=== PATIENT | male | born 1955 | race Hispanic/Latino ===

== ENCOUNTER 2017-07-15 17:41 | Observation (INO) | payer OTHER, SELFPAY ==
[2017-07-15 18:36] LABS: #Basophils 0.1 thou/uL (0.0-0.2); #Eosinphils 0.3 thou/uL (0.0-0.7); #Lymphocytes 1.7 thou/uL (1.20-3.40); #Monocytes 0.8 thou/uL (0.11-0.59); #Neutrophils 5.3 thou/uL (1.40-6.50); %Basophils 0.8 % (0.0-1.0); %Eosinophils 3.4 % (0.0-10.0); %Lymphocytes 20.9 % (21.0-51.0); %Monocytes 9.2 % (0.0-10.0); %Neutrophils 65.6 % (42.0-75.0); Hemoglobin 13.8 g/dL (14.0-18.0); Mean Corpuscular Hemoglobin 32.1 pg (27.0-31.0); Mean Corpuscular Volume 94.6 fl (80.0-94.0); Mean Platelet Volume 8.9 fL (7.4-10.4); Platelet Count 240 thou/uL (130-400); RBC Distribution Width 13.4 % (11.5-14.5); Red Blood Cell (RBC) Count 4.28 mill/uL (4.70-6.10); White Blood Cell (WBC) Count 8.1 thou/uL (4.8-10.8)
[2017-07-15] MEDS ORDERED: Nitroglycerin 0.4 MG TAB (25 Tab Bottle) ONE (18:36)
[2017-07-15 18:58] LABS: ALT (SGPT) 16 U/L (8-55); AST (SGOT) 16 U/L (5-34); Albumin 4.1 g/dL (3.5-5.0); Alkaline Phosphatase 77 U/L (40-150); Anion Gap 14 mmol/L (10-20); BUN (Urea Nitrogen) 13 mg/dL (8.4-25.7); Bilirubin, Total 0.3 mg/dL (0.2-1.2); Calc. Creatinine Clearance 0 mL/min (70-130); Calcium 8.7 mg/dL (7.8-10.44); Carbon Dioxide 21 mmol/L (22-29); Chloride 107 mmol/L (98-107); Estimated GFR-MDRD 88; Globulin 3.1 g/dL (2.4-3.5); Glucose 100 mg/dL (70-105); Potassium 3.6 mmol/L (3.5-5.1); Protein, Total 7.2 g/dL (6.0-8.3); Sodium 138 mmol/L (136-145)
[2017-07-15] MEDS ORDERED: Nitroglycerin 0.4 MG TAB (25 Tab Bottle) PO PRN (19:03)
[2017-07-15] MEDS ORDERED: Acetaminophen 325 MG TAB PO PRN ×2 (19:03→20:38)
[2017-07-15] MEDS ORDERED: Acetaminophen 650 MG Suppository PR PRN (19:03)
[2017-07-15] MEDS ORDERED: Bisacodyl 5 MG TAB PO PRN (19:03)
[2017-07-15 19:05] LABS: CKMB 1.4 ng/mL (0-6.6); Troponin I 0.012 ng/mL (< 0.028)
--- NOTE | 2017-07-15 20:13 | HP ---
PRIMARY CARE PHYSICIAN: None. CHIEF COMPLAINT: Chest pain. HISTORY OF PRESENT ILLNESS: Mr. Diggs is a pleasant 61-year-old gentleman, who was seen at [facility] on 07/15/2016. He is an [facility]. He reports that he was sitting in his cell today afternoon, when he developed tingling sensation over the left side of his chest. He describes it as tingling, slightly painful, nonradiating, accompanie d by shortness of breath, not accompanied by diaphoresis or lightheadedness or nausea, lasted a few m inutes. He denies any cough, fevers or chills. REVIEW OF SYSTEMS: The following complete review of systems was negative, unless otherwise mentioned in the HPI or below: Constitutional: Weight loss or gain, ability to conduct usual activities. Skin: Rash, itching. Eyes: Double vision, pain. ENT/Mouth: Nose bleeding, neck stiffness, pain, tenderness. Cardiovascular: Palpitations, dyspnea on exertion, orthopnea. Respiratory: Shortness of breath, wheezing, cough, hemoptysis, fever or night sweats. Gastrointestinal: Poor appetite, abdominal pain, heartburn, nausea, vomiting, constipation, or diarr hea. Genitourinary: Urgency, frequency, dysuria, nocturia. Musculoskeletal: Pain, swelling. Neurologic/Psychiatric: Anxiety, depression. Allergy/Immunologic: Skin rash, bleeding tendency. PAST MEDICAL HISTORY: Significant for coronary artery disease. He reports that he had cardiac josh terization 3 or 4 years ago in [place]. He was found to have 30% lesion in one of the coronaries. He d id not followup. He also has a history of back pain, depression and obstructive sleep apnea syndrome and hypertension. PAST SURGICAL HISTORY: Significant for laminectomy L4-L5 and L5-S1, right knee meniscal repair and r hinoplasty. SOCIAL HISTORY: He reports that he has an extensive history of recreational drug use. He has not us ed cocaine recently. He denies any recreational drug use in the last 3 weeks. He also reports that he is an ex-smoker. He reports occasional alcohol use. ALLERGIES: No known drug allergies. CURRENT MEDICATIONS: The list needs to be clarified, he reports using Edarbi and Bystolic in the pas t, but he is not using it now. At the skilled nursing, he reports getting Wellbutrin, Lamictal, Abilify, Seroqu el and Norvasc. PHYSICAL EXAMINATION: GENERAL: Mr. Diggs is awake and alert, not in acute distress. VITAL SIGNS: Blood pressure is 155/83, pulse is 100, his breathing at rate of 18 and saturating 97% on room air. He is afebrile. He is obese. EYES: No scleral icterus. No conjunctival pallor. ENT: Moist mucosal membranes, no oropharyngeal erythema or exudates. NECK: Supple, nontender, normal range of movement. Trachea is midline. RESPIRATORY: Accessory muscles of breathing are not active. Chest wall movements are symmetric bila terally. LUNGS: Clear to auscultation without wheeze, rhonchi or crepitations. CARDIOVASCULAR: S1 and S2 are heard, regular. LUNGS: Peripheral pulses palpable. No carotid bruit, no pericardial rub. ABDOMEN: Distended, nontender, bowel sounds heard. No hepatomegaly, no splenomegaly. NEUROLOGIC: Cranial nerves II-XII are intact. Deep tendon reflexes 2+. MUSCULOSKELETAL: Power is 5/5 in all 4 extremities. SKIN: The patient has tattoos. No other rashes or subcutaneous nodules. LYMPHATIC: No cervical lymphadenopathy. PSYCHIATRIC: Normal mood, normal affect. The patient is oriented to person, place, and time. LABORATORY DATA: Mr. Diggs labs and investigations were reviewed. I reviewed his electrocardiogram, which shows normal sinus rhythm, no ST changes to suggest an acute coronary syndrome. I also reviewe d his chest x-ray, which does not show any pulmonary infiltrates. Laboratory investigation show norm al white count, macrocytic anemia with hemoglobin 13.8, normal platelet count, decreased carbon dioxi de of 21, otherwise normal comprehensive metabolic profile and normal troponin I. BNP is normal. ASSESSMENT AND PLAN: Mr. Diggs is a pleasant 61-year-old gentleman who was seen at [facility] on 07/15/2017. His problem list includes: 1. Chest pain: Mr. Diggs will be admitted to the hospital to rule out acute coronary syndrome. I wi ll order a stress test. He will be monitored on telemetry. I will also order a D-dimer level to rul e out pulmonary embolism. 2. Obstructive sleep apnea syndrome. The patient to use CPAP while asleep. 3. Hypertension: Monitor vital signs, titrate antihypertensives as needed. 4. Depression: Continue home medications once clarified. Many thanks for allowing me to participate in your patient's care. Please feel free to contact me wi th any questions or concerns. LEVEL OF RISK: High. LEVEL OF COMPLEXITY: High. Urine drug screen will be requested.
[2017-07-15] MEDS ORDERED: Ondansetron HCl/PF 4 MG/2 ML Vial IVP PRN (20:38)
[2017-07-15] MEDS ORDERED: Ondansetron ODT 4 MG TAB SL PRN (20:38)
[2017-07-15] MEDS ORDERED: lamoTRIgine 100 MG TAB PO SCH (22:30)
[2017-07-15 22:43] LABS: Amphetamine Not Detected (NotDetected); Barbiturates Screen Not Detected (NotDetected); Benzodiazepine Screen Not Detected (NotDetected); Cocaine Metabolite Screen Not Detected (NotDetected); Medtox Control Line Valid? VALID (VALID); Medtox Reader # READER 1; Methadone Not Detected (NotDetected); Methamphetamine Not Detected (NotDetected); Opiate Screen Not Detected (NotDetected); Oxycodone Screen Not Detected (NotDetected); Phencyclidine (PCP) Not Detected (NotDetected); THC/Cannabinoid Screen Not Detected (NotDetected); Tricyclic Screen Not Detected (NotDetected)
[2017-07-15 22:44] LABS: Troponin I Less than 0.010 ng/mL (< 0.028)
[2017-07-16 00:17] VITALS: BMI 39.2
[2017-07-16 01:26] LABS: Troponin I 0.011 ng/mL (< 0.028)
[2017-07-16 02:18] LABS: #Basophils 0.1 thou/uL (0.0-0.2); #Eosinphils 0.3 thou/uL (0.0-0.7); #Monocytes 0.8 thou/uL (0.11-0.59); #Neutrophils 4.6 thou/uL (1.40-6.50); %Basophils 0.7 % (0.0-1.0); %Eosinophils 4.2 % (0.0-10.0); %Lymphocytes 25.1 % (21.0-51.0); %Monocytes 10.4 % (0.0-10.0); %Neutrophils 59.6 % (42.0-75.0); Mean Corpuscular Volume 94.1 fl (80.0-94.0); Mean Platelet Volume 9.4 fL (7.4-10.4); Platelet Count 233 thou/uL (130-400); RBC Distribution Width 13.5 % (11.5-14.5); Red Blood Cell (RBC) Count 4.06 mill/uL (4.70-6.10); White Blood Cell (WBC) Count 7.8 thou/uL (4.8-10.8)
[2017-07-16 02:31] LABS: Anion Gap 11 mmol/L (10-20); BUN (Urea Nitrogen) 11 mg/dL (8.4-25.7); Calc. Creatinine Clearance 151 mL/min (70-130); Calcium 8.8 mg/dL (7.8-10.44); Carbon Dioxide 25 mmol/L (22-29); Chloride 107 mmol/L (98-107); Estimated GFR-MDRD Greater than 90; Glucose 83 mg/dL (70-105); Potassium 3.6 mmol/L (3.5-5.1); Sodium 139 mmol/L (136-145)
[2017-07-16] MEDS ORDERED: clonazePAM 1 MG TAB PO PRN (08:53)
[2017-07-16] MEDS ORDERED: Nebivolol HCl 5 MG TAB PO SCH (09:00)
[2017-07-16] MEDS ORDERED: Non-Formulary Item 1 EACH (Nebivolol Hcl [Bystolic] 10 MG) PO SCH (09:00)
[2017-07-16] MEDS ORDERED: Aripiprazole 15 MG TAB PO SCH (09:00)
[2017-07-16] MEDS ORDERED: GUANFACINE HCL 2 MG PO SCH (09:00)
[2017-07-16] MEDS ORDERED: Aspirin 325 MG TAB PO SCH (09:00)
[2017-07-16] MEDS ORDERED: ARIPIPRAZOLE 7.5 MG PO SCH (09:00)
[2017-07-16] MEDS ORDERED: Enoxaparin Sodium 40 MG/0.4 ML SYRINGE SC SCH (09:00)
[2017-07-16] MEDS ORDERED: Bupropion 150 MG XL TAB PO SCH (09:00)
[2017-07-16] MEDS ORDERED: Escitalopram Oxalate 20 mg Tablet PO SCH (09:00)
[2017-07-16] MEDS ORDERED: AZILSARTAN MEDOXOMIL 80 MG PO SCH (09:00)
[2017-07-16] MEDS ORDERED: Non-Formulary Item 1 EACH (Bupropion Hcl [Bupropion Hcl Xl] 300 MG) PO SCH (09:00)
[2017-07-16 11:48] VITALS: BP 169/84; TEMP 97.4
[2017-07-16] MEDS ORDERED: ADENOSINE 60 MG/20 ML VIAL ONE (12:17)
--- NOTE | 2017-07-16 12:59 | NM ---
NUCLEAR MEDICINE CARDIAC MYOCARDIAL PERFUSION SPECT EJECTION FRACTION STUDY WALL MOTION CINE: Date: 07/16/17 HISTORY: 61-year-old male with chest pain. TECHNIQUE: Number of days: 1 Rest study: Tc99m sestamibi (Cardiolite) dose: 10.2 mCi Pharmacologic stress: adenosine dose: 59.9 mg Stress study: Tc99m sestamibi (Cardiolite) dose: 29.0 mCi FINDINGS: CARDIAC (MYOCARDIAL PERFUSION) SPECT Distribution of sestamibi is homogeneous throughout the left ventricle, with no fixed or reversible m yocardial perfusion defects. EJECTION FRACTION STUDY EF = 54% WALL MOTION CINE The left ventricular wall motion is normal. There is normal systolic wall thickening. IMPRESSION: Normal. carlitos[] POS: GARIMA
[2017-07-16] MEDS ORDERED: Non-Formulary Item 1 EACH (Lamotrigine [Lamotrigine] 200 MG) PO SCH (21:00)
[2017-07-16] MEDS ORDERED: lamoTRIgine 100 MG TAB PO SCH (21:00)
--- NOTE | 2017-07-16 23:37 | DIS ---
DATE OF ADMISSION: 07/15/2017 DATE OF DISCHARGE: 07/16/2017 CONDITION AT TIME OF DISCHARGE: Stable and improved. DISCHARGE DISPOSITION: Back to [facility]. DISCHARGE FOLLOWUP: PCP at [facility]. DISCHARGE DIAGNOSES: 1. Atypical chest pain. 2. Uncontrolled hypertension. 3. History of coronary artery disease. 4. Chronic back pain. 5. Depression. 6. Obstructive sleep apnea. 7. Morbid obesity with BMI of 39.3. DISCHARGE MEDICATIONS: Resume home medications as follows, Seroquel 100 mg at bedtime, clonazepam 1 mg p.o. b.i.d. p.r.n., Edarbi 80 mg daily, Bystolic 10 mg daily, Protonix 40 mg daily, bupropion XL 3 00 mg daily, guanfacine2 mg daily, aripiprazole 7.5 mg daily, escitalopram 20 mg daily, lamotrigine 2 00 mg daily. New medication, Norvasc 10 mg p.o. daily. PROCEDURES DONE: In the hospital include nuclear medicine stress test, which shows no evidence of re versible or fixed ischemia or wall motion abnormality. EF was calculated at 54%. HISTORY OF PRESENTING ILLNESS: Mr. Diggs is a 61-year-old male with history of mild coronary artery d isease and hypertension and psychiatric illness, who presented with a complaint of chest pain. The dani mcclelland is an inmate at [facility]. He describes the sensation is tingling sensation accompan ied by shortness of breath. He reports having a lot of stress ongoing for him and also reports uncon trolled hypertension with systolic blood pressure as high as over 200 and diastolic blood pressure as high as over 100. His initial cardiac enzymes and EKG were unremarkable and he was admitted for fur ther risk stratification. Please see admission history and physical for further details. D-dimer wa s ordered, which was 0.32. HOSPITAL COURSE: The patient remained asymptomatic throughout his hospitalization. His systolic blo od pressure ranged from 150s-169 and diastolic from 75-89. He underwent a nuclear medicine stress te st, which was negative for any evidence of acute coronary syndrome. His serial cardiac enzymes were trended and were unremarkable. He was started on amlodipine in addition to continuation of his home regimen. He tolerated this very well. He was given prescription for the new medication. At this time, he will follow up with his [facility] doctor at [facility]. At this time, he is being discharged back to [facility]. He was seen and examined prior to discharge. PHYSICAL EXAMINATION: VITAL SIGNS: Temperature 97.4, pulse of 90, respirations 18, saturating 98% on room air, blood press ure 169/84 in no acute distress, awake, alert, oriented x3. CHEST: Clear to auscultation. Rate and rhythm is regular. ABDOMEN: Morbidly obese. NEUROLOGICAL EXAMINATION: Unremarkable. LABORATORY EXAMINATION: Serum chemistries unremarkable. CBC shows WBCs 7.8, hemoglobin 13, platelet count of 233. Urine drug screen negative. He will have his blood pressure monitored more frequently at the [facility]. Medication adjustments a s necessary by the [facility] doctor have been advised.
[2017-07-17] MEDS ORDERED: AZILSARTAN MEDOXOMIL 80 MG PO SCH (09:00)
== END 2017-07-16 13:20 ==
LOC: ERS 17:41 → 2SW 19:50
PROVIDERS: ADMIT Internal Medicine; ATTEND Internal Medicine
DX: R07.89 Other chest pain (principal); G89.29 Other chronic pain; M54.9 Dorsalgia, unspecified; F32.9 Major depressive disorder, single episode, unspecified; F99 Mental disorder, not otherwise specified; F41.9 Anxiety disorder, unspecified; F19.11 Other psychoactive substance abuse, in remission; G47.33 Obstructive sleep apnea (adult) (pediatric); I25.10 Atherosclerotic heart disease of native coronary artery without angina pectoris; I10 Essential (primary) hypertension; I25.2 Old myocardial infarction; E66.01 Morbid (severe) obesity due to excess calories; Z68.39 Body mass index [BMI] 39.0-39.9, adult; Z87.11 Personal history of peptic ulcer disease; Z87.891 Personal history of nicotine dependence; Z79.899 Other long term (current) drug therapy; Z88.8 Allergy status to other drugs, medicaments and biological substances; Z98.890 Other specified postprocedural states
CPT/HCPCS: 36415; 78452; 80048; 80306; 84484; 85025; 85379; 90471; 90732; 93005; 93017; 94660; 94760; 96372; A4216; A9500; G0009; G0378; J0153; J1650